=== PATIENT | female | born 1955 | race Hispanic/Latino ===

== ENCOUNTER 2022-03-31 19:30 | Emergency (ER) | payer MEDICARE ==
[~2022-03-31] VITALS: Ht 149.9 cm; Wt 102.5 kg
[2022-03-31] MEDS ORDERED: ALBUTEROL/IPRATROPIUM 3 ML NEB NEB ONE (21:30)
[2022-03-31] MEDS ORDERED: ALBUTEROL/IPRATROPIUM 3 ML NEB ONE (21:41)
[2022-03-31] MEDS ORDERED: PROVENTIL HFA6.7 GM INH (22:42)
[2022-03-31] MEDS ORDERED: PREDNISONE20 MG PO (22:43)
[2022-03-31] MEDS ORDERED: IPRAT-ALBUT 0.5-3 ML INH (22:46)
[2022-03-31] MEDS ORDERED: PREDNISONE 20 MG TAB ONE (22:53)
== END 2022-03-31 23:10 | disposition home or self-care (01) ==
LOC: FSED 19:48
DX: R05.3 Chronic cough (principal); J98.01 Acute bronchospasm; I10 Essential (primary) hypertension; E78.5 Hyperlipidemia, unspecified
CPT/HCPCS: 71046; 80053; 80076; 81003; 83880; 84484; 85025; 85379; 99284; J7512; U0002